=== PATIENT | male | born 1940 | race Caucasian/White ===

== ENCOUNTER 2019-11-03 12:13 | Emergency (ER) | payer OTHER, MEDICARE, BC ==
[~2019-11-03] VITALS: Ht 182.9 cm; Wt 90.9 kg
[~2019-11-03 12:13] MED LIST: AMIO200T27 PO; APIX5TAB3 PO; BUDE10.2 INH; CARV3.122 PO; EZET10TA6 PO; FLO0.4C PO; FURO-150 PO; LOSA25TA41 PO; PRED2.5T4 PO; ROSU40TA PO; TIOT18CA3 INH
[2019-11-03 13:18] LABS: BASOPHILS % (AUTO) 0.7 % (0-1); EOSINOPHILS # (AUTO) 0.1 X10'3 (0-0.9); EOSINOPHILS % (AUTO) 1.1 % (0-6); HEMATOCRIT 41.1 % (42.0-52.0); HEMOGLOBIN 13.7 g/dl (14.0-17.9); LYMPHOCYTES # (AUTO) 0.8 X10'3 (1.1-4.8); LYMPHOCYTES % (AUTO) 11.6 % (21-51); MEAN CORPUSCULAR HEMOGLOBIN 31.1 PG (27.0-31.0); MEAN CORPUSCULAR HGB CONC 33.4 g/dL (33.0-36.5); MEAN CORPUSCULAR VOLUME 93.2 FL (78-98); MONOCYTES # (AUTO) 1.1 X10'3 (0-0.9); MONOCYTES % (AUTO) 16.9 % (2-12); NEUTROPHILS # (AUTO) 4.6 X10'3 (1.8-7.7); NEUTROPHILS % (AUTO) 69.7 % (42-75); PLATELET COUNT 245 X10'3 (140-440); RED BLOOD COUNT 4.41 X10'6 (4.70-6.10); RED CELL DISTRIBUTION WIDTH 15.2 % (11.5-14.5); WHITE BLOOD COUNT 6.6 X10'3 (4.5-11.0)
[2019-11-03 13:40] LABS: ALANINE AMINOTRANSFERASE 47 U/L (12-78); ALBUMIN 3.5 G/DL (3.4-5.0); ALBUMIN/GLOBULIN RATIO 1.1 (1.1-1.5); ALKALINE PHOSPHATASE 115 IU/L (46-116); ANION GAP 4 (8-16); ASPARTATE AMINO TRANSFERASE 55 U/L (10-37); BILIRUBIN,TOTAL 1.3 MG/DL (0.1-1.0); BLOOD UREA NITROGEN 17 MG/DL (7-18); BUN/CREATININE RATIO 12.9 (5.4-32.0); CALCIUM 8.8 MG/DL (8.5-10.1); CHLORIDE 96 MMOL/L (99-107); CREATININE 1.32 MG/DL (0.60-1.10); GLUCOSE 95 MG/DL (70-104); POTASSIUM 3.9 MMOL/L (3.5-5.1); SODIUM 130 MMOL/L (135-145); TOTAL CARBON DIOXIDE 30.1 MMOL/L (24-32); TOTAL PROTEIN 6.7 G/DL (6.4-8.2); eGFR 53 ML/MIN
[2019-11-03 15:16] LABS: CLARITY,URINE CLEAR (Clear); COLOR,URINE YELLOW (Yellow); GLUCOSE, URINE NEGATIVE (Neg); KETONES,URINE NEGATIVE (Neg); LEUKOCYTE ESTERASE ,URINE NEGATIVE (Neg); NITRITES, URINE NEGATIVE (Neg); OCCULT BLOOD,URINE NEGATIVE (Neg); PROTEIN,URINE NEGATIVE (Neg); UA COLLECTION TYPE URINAL
[2019-11-03 16:00] VITALS: BP 172/81
--- NOTE | 2019-11-03 16:09 | NUR ---
BECKIE NICHOLSON, NOTIFIED ME THAT PATIENT IS REQUESTING WALKER PRIOR TO DC. PATIENT HAS [employer]. I TOOK A FWW FROM THE "FREE WALKER" SUPPLY, AND GAVE TO BECKIE.
== END 2019-11-03 17:41 | disposition home or self-care (01) ==
LOC: ER 12:13
DX: R06.02 Shortness of breath (principal); I11.0 Hypertensive heart disease with heart failure; I50.9 Heart failure, unspecified; E78.00 Pure hypercholesterolemia, unspecified; M19.90 Unspecified osteoarthritis, unspecified site; Z98.890 Other specified postprocedural states; Z79.899 Other long term (current) drug therapy
CPT/HCPCS: 71045; 80053; 81003; 83880; 84484; 85025; 99284

== ENCOUNTER 2019-11-07 15:58 | Emergency (ER) | payer OTHER, MEDICARE, BC ==
[~2019-11-07] VITALS: Ht 182.9 cm; Wt 90.0 kg
[2019-11-07] MEDS ORDERED: normal saline 1000ML IV soln IVB ONE (17:25)
[2019-11-07 18:04] LABS: BASOPHILS % (AUTO) 0.8 % (0-1); EOSINOPHILS # (AUTO) 0.1 X10'3 (0-0.9); EOSINOPHILS % (AUTO) 1.4 % (0-6); HEMATOCRIT 40.6 % (42.0-52.0); HEMOGLOBIN 13.4 g/dl (14.0-17.9); LYMPHOCYTES % (AUTO) 16.3 % (21-51); MEAN CORPUSCULAR HEMOGLOBIN 30.7 PG (27.0-31.0); MEAN CORPUSCULAR VOLUME 92.9 FL (78-98); MEAN PLATELET VOLUME 7.6 FL (7.4-10.4); MONOCYTES # (AUTO) 1.2 X10'3 (0-0.9); NEUTROPHILS # (AUTO) 3.7 X10'3 (1.8-7.7); NEUTROPHILS % (AUTO) 61.5 % (42-75); PLATELET COUNT 283 X10'3 (140-440); RED BLOOD COUNT 4.37 X10'6 (4.70-6.10); RED CELL DISTRIBUTION WIDTH 14.8 % (11.5-14.5)
[2019-11-07 18:20] LABS: ALANINE AMINOTRANSFERASE 34 U/L (12-78); ALBUMIN 3.1 G/DL (3.4-5.0); ALKALINE PHOSPHATASE 98 IU/L (46-116); ANION GAP 6 (8-16); ASPARTATE AMINO TRANSFERASE 36 U/L (10-37); BILIRUBIN,TOTAL 1.1 MG/DL (0.1-1.0); BLOOD UREA NITROGEN 17 MG/DL (7-18); BUN/CREATININE RATIO 13.8 (5.4-32.0); CALCIUM 8.4 MG/DL (8.5-10.1); CHLORIDE 91 MMOL/L (99-107); CREATININE 1.23 MG/DL (0.60-1.10); GLUCOSE 87 MG/DL (70-104); POTASSIUM 4.2 MMOL/L (3.5-5.1); SODIUM 126 MMOL/L (135-145); TOTAL CARBON DIOXIDE 29.5 MMOL/L (24-32); TOTAL PROTEIN 6.2 G/DL (6.4-8.2); eGFR 57 ML/MIN
[2019-11-07 18:22] LABS: ETHANOL < 0.010 GM/DL (0.0-0.010); TROPONIN I < 0.04 NG/ML (0.0-0.05)
[2019-11-07] MEDS ORDERED: furosemide 10 MG/1 ML 10ml inj IV ONE (18:45)
[2019-11-07 19:09] LABS: TOTAL CELLS COUNTED 100
[2019-11-07 19:10] LABS: ANISOCYTOSIS 1+; PLATELET ESTIMATE NORMAL
[2019-11-07] MEDS ORDERED: LEVO50TA8 PO (19:37)
[2019-11-07 19:44] LABS: CLARITY,URINE CLEAR (Clear); COLOR,URINE YELLOW (Yellow); GLUCOSE, URINE NEGATIVE (Neg); KETONES,URINE NEGATIVE (Neg); LEUKOCYTE ESTERASE ,URINE NEGATIVE (Neg); NITRITES, URINE NEGATIVE (Neg); OCCULT BLOOD,URINE NEGATIVE (Neg); PH,URINE 6.5 (4.8-8.0); PROTEIN,URINE NEGATIVE (Neg)
[2019-11-07 19:47] LABS: UA COLLECTION TYPE CLN CATCH MIDSTREAM
[2019-11-07 21:00] VITALS: BP 190/63
[2019-11-07] MEDS ORDERED: tranexamic acid 100mg/ml inj. IV ONE (22:05)
[2019-11-07] MEDS ORDERED: TRANEXAMIC ACID 1 GM IN NACL,ISO-OS 100 ML IV ONE (22:10)
[2019-11-07] MEDS ORDERED: STERILE IV ONE ×2 (22:10)
[2019-11-07] MEDS ORDERED: WATER FOR INJECTION IV ONE ×2 (22:10)
[2019-11-07] MEDS ORDERED: HUMAN PROTHROMBIN COMPLEX PCC IV ONE ×2 (22:10)
== END 2019-11-07 22:54 | disposition short-term general hospital (02) ==
LOC: ER 16:01
DX: S06.5X9A Traumatic subdural hemorrhage with loss of consciousness of unspecified duration, initial encounter (principal); E87.1 Hypo-osmolality and hyponatremia; I50.9 Heart failure, unspecified; N18.9 Chronic kidney disease, unspecified; E78.00 Pure hypercholesterolemia, unspecified; I13.0 Hypertensive heart and chronic kidney disease with heart failure and stage 1 through stage 4 chronic kidney disease, or unspecified chronic kidney disease; M19.90 Unspecified osteoarthritis, unspecified site; Z90.49 Acquired absence of other specified parts of digestive tract; Z98.890 Other specified postprocedural states; Z72.89 Other problems related to lifestyle; Z79.01 Long term (current) use of anticoagulants; Z79.899 Other long term (current) drug therapy; W19.XXXA Unspecified fall, initial encounter; Y93.89 Activity, other specified; Y92.89 Other specified places as the place of occurrence of the external cause; Y99.8 Other external cause status
CPT/HCPCS: 36415; 70450; 71045; 72125; 80053; 80320; 81003; 82948; 83880; 84484; 85025; 85610; 93005; 96361; 96365; 96375; 99285; C9132; J1940; J7030

== ENCOUNTER 2020-01-15 21:14 | Emergency (ER) | payer OTHER, MEDICARE, BC ==
[~2020-01-15] VITALS: Ht 182.9 cm; Wt 90.9 kg
[~2020-01-15 21:14] MED LIST changes: -BUDE10.2 INH; +LEVO50TA8 PO; -PRED2.5T4 PO; -TIOT18CA3 INH
--- NOTE | 2020-01-15 21:27 | NUR ---
ice pack to the leg
--- NOTE | 2020-01-15 21:34 | NUR ---
bleeding controlled 3 ice packs applied with barrier to reduce pain blood flow
[2020-01-15] MEDS ORDERED: LIDOcaine 1% W/epiNEPHrine 1:200,000 10ml vial IJ ONE (22:40)
[2020-01-16 00:25] VITALS: BP 150/80
== END 2020-01-16 00:26 | disposition home or self-care (01) ==
LOC: ER 21:14
DX: S81.812A Laceration without foreign body, left lower leg, initial encounter (principal); I11.0 Hypertensive heart disease with heart failure; I50.9 Heart failure, unspecified; E78.00 Pure hypercholesterolemia, unspecified; M19.90 Unspecified osteoarthritis, unspecified site; Z98.890 Other specified postprocedural states; Z72.89 Other problems related to lifestyle; Z79.899 Other long term (current) drug therapy; X58.XXXA Exposure to other specified factors, initial encounter; Y93.89 Activity, other specified; Y92.89 Other specified places as the place of occurrence of the external cause; Y99.8 Other external cause status
CPT/HCPCS: 12004; 99282

== ENCOUNTER 2020-01-24 15:39 | Emergency (ER) | payer OTHER, MEDICARE, BC ==
[~2020-01-24] VITALS: Ht 182.9 cm; Wt 90.9 kg
[2020-01-24 18:09] LABS: BASOPHILS % (AUTO) 0.8 % (0-1); EOSINOPHILS # (AUTO) 0.1 X10'3 (0-0.9); EOSINOPHILS % (AUTO) 1.4 % (0-6); HEMATOCRIT 33.6 % (42.0-52.0); HEMOGLOBIN 11.2 g/dl (14.0-17.9); LYMPHOCYTES % (AUTO) 19.3 % (21-51); MEAN CORPUSCULAR HEMOGLOBIN 29.1 PG (27.0-31.0); MEAN CORPUSCULAR HGB CONC 33.4 g/dL (33.0-36.5); MEAN CORPUSCULAR VOLUME 87.3 FL (78-98); MEAN PLATELET VOLUME 7.3 FL (7.4-10.4); MONOCYTES # (AUTO) 1.1 X10'3 (0-0.9); MONOCYTES % (AUTO) 21.4 % (2-12); NEUTROPHILS % (AUTO) 57.1 % (42-75); PLATELET COUNT 287 X10'3 (140-440); RED BLOOD COUNT 3.85 X10'6 (4.70-6.10); RED CELL DISTRIBUTION WIDTH 15.9 % (11.5-14.5); WHITE BLOOD COUNT 5.2 X10'3 (4.5-11.0)
[2020-01-24 18:50] LABS: CLARITY,URINE CLEAR (Clear); COLOR,URINE YELLOW (Yellow); GLUCOSE, URINE NEGATIVE (Neg); KETONES,URINE NEGATIVE (Neg); LEUKOCYTE ESTERASE ,URINE NEGATIVE (Neg); NITRITES, URINE NEGATIVE (Neg); OCCULT BLOOD,URINE TRACE-INTACT (Neg); PROTEIN,URINE NEGATIVE (Neg); UA COLLECTION TYPE URINAL
[2020-01-24 18:56] LABS: BACTERIA,URINE NONE SEEN /HPF (Neg); RBC,URINE 0-2 /HPF (0-2); SQUAMOUS EPITHELIAL CELL,UR FEW /LPF (FEW); WBC,URINE NONE SEEN /HPF (0-4)
[2020-01-24 19:37] LABS: ALANINE AMINOTRANSFERASE 82 U/L (12-78); ALBUMIN 3.4 G/DL (3.4-5.0); ALBUMIN/GLOBULIN RATIO 1.2 (1.1-1.5); ALKALINE PHOSPHATASE 106 IU/L (46-116); ANION GAP 5 (8-16); ASPARTATE AMINO TRANSFERASE 63 U/L (10-37); BILIRUBIN,TOTAL 0.7 MG/DL (0.1-1.0); BLOOD UREA NITROGEN 22 MG/DL (7-18); BUN/CREATININE RATIO 17.9 (5.4-32.0); CALCIUM 8.5 MG/DL (8.5-10.1); CHLORIDE 91 MMOL/L (99-107); CREATININE 1.23 MG/DL (0.60-1.10); GLUCOSE 101 MG/DL (70-104); POTASSIUM 4.8 MMOL/L (3.5-5.1); SODIUM 123 MMOL/L (135-145); TOTAL CARBON DIOXIDE 26.9 MMOL/L (24-32); TOTAL PROTEIN 6.2 G/DL (6.4-8.2); eGFR 57 ML/MIN
[2020-01-24 19:54] VITALS: BP 177/79
== END 2020-01-24 20:00 | disposition home or self-care (01) ==
LOC: ER 15:39
DX: I95.9 Hypotension, unspecified (principal); E86.0 Dehydration; I50.9 Heart failure, unspecified; E78.00 Pure hypercholesterolemia, unspecified; I11.0 Hypertensive heart disease with heart failure; M19.90 Unspecified osteoarthritis, unspecified site; Z98.890 Other specified postprocedural states; Z72.89 Other problems related to lifestyle; Z79.01 Long term (current) use of anticoagulants; Z79.899 Other long term (current) drug therapy
CPT/HCPCS: 36415; 80053; 81001; 85025; 99285

== ENCOUNTER 2020-02-11 13:00 | Emergency (ER) | payer OTHER, MEDICARE, BC ==
[~2020-02-11] VITALS: Ht 182.9 cm; Wt 90.9 kg
[2020-02-11 13:33] VITALS: BP 131/59
--- NOTE | 2020-02-11 14:15 | NUR ---
Pt. reports Dr. Castro removed sutures that were place here previously and wound is now bleeding, dressing left in place until provider can view.
[2020-02-11 15:21] LABS: BASOPHILS % (AUTO) 0.7 % (0-1); EOSINOPHILS % (AUTO) 0.5 % (0-6); HEMATOCRIT 34.6 % (42.0-52.0); HEMOGLOBIN 11.5 g/dl (14.0-17.9); LYMPHOCYTES # (AUTO) 0.9 X10'3 (1.1-4.8); LYMPHOCYTES % (AUTO) 14.6 % (21-51); MEAN CORPUSCULAR HEMOGLOBIN 28.8 PG (27.0-31.0); MEAN CORPUSCULAR HGB CONC 33.3 g/dL (33.0-36.5); MEAN CORPUSCULAR VOLUME 86.6 FL (78-98); MEAN PLATELET VOLUME 7.5 FL (7.4-10.4); MONOCYTES # (AUTO) 1.1 X10'3 (0-0.9); MONOCYTES % (AUTO) 17.7 % (2-12); NEUTROPHILS % (AUTO) 66.5 % (42-75); PLATELET COUNT 309 X10'3 (140-440); RED BLOOD COUNT 3.99 X10'6 (4.70-6.10); RED CELL DISTRIBUTION WIDTH 15.4 % (11.5-14.5)
[2020-02-11 15:33] LABS: PARTIAL THROMBOPLASTIN TIME 34 SECONDS (22-32)
[2020-02-11 15:36] LABS: ALANINE AMINOTRANSFERASE 72 U/L (12-78); ALBUMIN 3.5 G/DL (3.4-5.0); ALBUMIN/GLOBULIN RATIO 1.2 (1.1-1.5); ALKALINE PHOSPHATASE 111 IU/L (46-116); ANION GAP 4 (8-16); ASPARTATE AMINO TRANSFERASE 60 U/L (10-37); BLOOD UREA NITROGEN 17 MG/DL (7-18); BUN/CREATININE RATIO 14.4 (5.4-32.0); CALCIUM 8.5 MG/DL (8.5-10.1); CHLORIDE 93 MMOL/L (99-107); CREATININE 1.18 MG/DL (0.60-1.10); GLUCOSE 95 MG/DL (70-104); POTASSIUM 4.1 MMOL/L (3.5-5.1); SODIUM 125 MMOL/L (135-145); TOTAL CARBON DIOXIDE 28.4 MMOL/L (24-32); TOTAL PROTEIN 6.4 G/DL (6.4-8.2); eGFR 60 ML/MIN
[2020-02-11] MEDS ORDERED: AMOX-422 PO (15:51)
[2020-02-11] MEDS ORDERED: LACT1CAP60 PO (15:51)
[2020-02-11 16:27] LABS: PLATELET ESTIMATE NORMAL; TOTAL CELLS COUNTED 300
[2020-02-11 16:29] LABS: POIKILOCYTOSIS 1+
[2020-02-11 16:30] LABS: ACANTHOCYTES FEW; BURR CELLS 1+; SCHISTOCYTES FEW
[2020-02-11 16:32] LABS: ELLIPTOCYTES 1+; TEAR DROP CELLS FEW
== END 2020-02-11 16:11 | disposition home or self-care (01) ==
LOC: ER 13:00
DX: L03.90 Cellulitis, unspecified (principal); T81.89XD Other complications of procedures, not elsewhere classified, subsequent encounter; I50.9 Heart failure, unspecified; E78.00 Pure hypercholesterolemia, unspecified; I11.0 Hypertensive heart disease with heart failure; M19.90 Unspecified osteoarthritis, unspecified site; Z98.890 Other specified postprocedural states; Z72.89 Other problems related to lifestyle; Z79.01 Long term (current) use of anticoagulants; Z79.899 Other long term (current) drug therapy
CPT/HCPCS: 73590; 80053; 85007; 85025; 85610; 85730; 99284

== ENCOUNTER 2020-04-30 08:10 | Day surgery (SDC) | payer MEDICARE, BC ==
[2020-04-29 16:05] LABS: BASOPHILS % (AUTO) 0.7 % (0-1); EOSINOPHILS # (AUTO) 0.1 X10'3 (0-0.9); EOSINOPHILS % (AUTO) 1.9 % (0-6); HEMATOCRIT 37.6 % (42.0-52.0); HEMOGLOBIN 12.3 g/dl (14.0-17.9); LYMPHOCYTES # (AUTO) 1.5 X10'3 (1.1-4.8); LYMPHOCYTES % (AUTO) 24.8 % (21-51); MEAN CORPUSCULAR HGB CONC 32.9 g/dL (33.0-36.5); MEAN CORPUSCULAR VOLUME 85.1 FL (78-98); MEAN PLATELET VOLUME 8.2 FL (7.4-10.4); NEUTROPHILS # (AUTO) 3.3 X10'3 (1.8-7.7); NEUTROPHILS % (AUTO) 55.6 % (42-75); PLATELET COUNT 282 X10'3 (140-440); RED BLOOD COUNT 4.41 X10'6 (4.70-6.10); WHITE BLOOD COUNT 5.9 X10'3 (4.5-11.0)
[2020-04-29 16:10] LABS: ALBUMIN 3.6 G/DL (3.4-5.0); ANION GAP 5 (8-16); BLOOD UREA NITROGEN 24 MG/DL (7-18); CALCIUM 8.8 MG/DL (8.5-10.1); CHLORIDE 96 MMOL/L (99-107); CREATININE 1.09 MG/DL (0.60-1.10); GLUCOSE 92 MG/DL (70-104); POTASSIUM 4.3 MMOL/L (3.5-5.1); SODIUM 130 MMOL/L (135-145); TOTAL CARBON DIOXIDE 29.5 MMOL/L (24-32); eGFR 66 ML/MIN
[~2020-04-30] VITALS: Ht 182.9 cm; Wt 88.0 kg
[~2020-04-30 08:10] MED LIST changes: +LACT1CAP60 PO
[2020-04-30 08:25] VITALS: BP 153/66
[2020-04-30 08:30] VITALS: BP 153/66
[2020-04-30] MEDS ORDERED: amiodarone 150mg/dext, iso-os 100 ML IV ONE (08:30)
[2020-04-30] MEDS ORDERED: LORazepam 0.5 MG tablet PO ONE (08:30)
[2020-04-30] MEDS ORDERED: morphine 10mg/ml inj. IV ONE (08:30)
[2020-04-30] MEDS ORDERED: atropine 0.1mg/ml 10ml syringe IV ONE (08:30)
[2020-04-30] MEDS ORDERED: diphenhydrAMINE 25mg capsule PO ONE ×2 (08:30→08:50)
[2020-04-30] MEDS ORDERED: normal saline 1000ml 1,000 ML IV SCH ×2 (08:30→08:50)
[2020-04-30] MEDS ORDERED: MIDAZolam 1mg/ml 10ml vial IV ONE (08:30)
--- NOTE | 2020-04-30 08:35 | NUR ---
12 LEAD EKG COMPLETED. FIRST DEGREE HEART BLOCK, NO ATRIAL FIBRILATION. FAXED EKG TO DR LOAIZA, IN REGISTERED NURSE PRACTITIONER. AGREED PT IN SINUS. WILL COME TO CONSULT WITH PT, AFTER REGISTERED NURSE PRACTITIONER CASE COMPLETED. Addendum: 04/30/20 at 1359 by Daphne Flanagan RN Amended: Links added.
[2020-04-30] MEDS ORDERED: POTA10TA36 PO (08:46)
[2020-04-30] MEDS ORDERED: ROPI0.252 PO (08:46)
[2020-04-30] MEDS ORDERED: ATOR-2 PO (08:46)
[2020-04-30] MEDS ORDERED: FINA5TAB11 PO (08:46)
[2020-04-30] MEDS ORDERED: SODI100035 MC (08:46)
--- NOTE | 2020-04-30 10:00 | NUR ---
DR LOAIZA IN TO DISCUSS WITH PT PLAN, FOLLOW UP IN 2 MONTHS. CONTINUE HOME MEDS, HOLD COREG IF HEART RATE BELOW 50, LABS RETRIEVED FROM, HEALTHY LIVING AT HOME, HOME HEALTH CARE.. COPY TO DR LOAIZA, PT STATES DR JHAVERI IS PRIMARY MD, DR LOAIZA DISCUSSED WITH PT FOR MD TO MONITOR BNP AND LASIX ADJUST. Addendum: 04/30/20 at 1415 by Daphne Flanagan RN Amended: Links added.
--- NOTE | 2020-04-30 10:30 | NUR ---
PTS SPOUSE HERE TO TRANSPORT PT HOME, PT TO FRONT OF HOSPITAL WITH ALL PERSONAL BELONGINGS. REVIEWED D/C INSTRUCTIONS WITH PT'S SPOUSE, FOLLOW UP DLEMER., CHECKING HEART RATE AND HOLD COREG IF HEART RATE LOWER THAN 50BPM Addendum: 04/30/20 at 1428 by Daphne Flanagan RN Amended: Links added.
--- NOTE | 2020-04-30 10:35 | NUR ---
PT ASSISTED INTO VEHICLE, TO HOME WITH SPOUSE.
[2020-04-30] MEDS ORDERED: FLU VACC QS2020-21(6MOS UP)/PF 60 MCG/0.5 ML SYRINGE IMVAC ONE (14:00)
== END 2020-04-30 10:35 | disposition home or self-care (01) ==
LOC: SSTAY O 08:10
PROVIDERS: ATTEND Internal Medicine Cardiovascular Disease
DX: I48.0 Paroxysmal atrial fibrillation (principal); I25.10 Atherosclerotic heart disease of native coronary artery without angina pectoris; E78.5 Hyperlipidemia, unspecified; I11.0 Hypertensive heart disease with heart failure; I50.32 Chronic diastolic (congestive) heart failure; I65.22 Occlusion and stenosis of left carotid artery; Z79.01 Long term (current) use of anticoagulants; Z79.899 Other long term (current) drug therapy
CPT/HCPCS: 80048; 85025; 85610; 93005

== ENCOUNTER 2021-12-14 10:45 | Emergency (ER) | payer MEDICARE, BC ==
[~2021-12-14] VITALS: Ht 180.3 cm; Wt 86.4 kg
[~2021-12-14 10:45] MED LIST changes: +ATOR-2 PO; +FINA5TAB11 PO; -LACT1CAP60 PO; -LOSA25TA41 PO; +POTA10TA37 PO; +ROPI0.252 PO; -ROSU40TA PO; +SODI100035 MC
[2021-12-14 11:40] VITALS: BP 119/60
[2021-12-14] MEDS ORDERED: LIDOcaine 1.5% w/epinephrine 1:200,000 5ml ampul IJ ONE (12:05)
[2021-12-14] MEDS ORDERED: bacitracin 15gm ointment TP ONE (12:05)
[2021-12-14] MEDS ORDERED: LIDOcaine 1% W/epiNEPHrine 1:100,000 20ml vial IJ ONE (12:35)
[2021-12-14] MEDS ORDERED: CEPH250T PO (14:01)
== END 2021-12-14 14:30 | disposition home or self-care (01) ==
LOC: ER 10:46
DX: S81.811A Laceration without foreign body, right lower leg, initial encounter (principal); D68.59 Other primary thrombophilia; I11.0 Hypertensive heart disease with heart failure; I50.9 Heart failure, unspecified; E78.00 Pure hypercholesterolemia, unspecified; M19.90 Unspecified osteoarthritis, unspecified site; Z98.890 Other specified postprocedural states; Z72.89 Other problems related to lifestyle; Z79.2 Long term (current) use of antibiotics; Z79.899 Other long term (current) drug therapy; X58.XXXA Exposure to other specified factors, initial encounter; Y93.89 Activity, other specified; Y92.89 Other specified places as the place of occurrence of the external cause; Y99.8 Other external cause status
CPT/HCPCS: 99283; J7030; A6446; A6449